=== PATIENT | female | born 1940 | race Hispanic/Latino ===

== ENCOUNTER 2025-02-20 07:56 | Outpatient (CLI) | payer MEDICARE ==
[2025-02-20 09:38] LABS: Estimated GFR - POC 56.0
[2025-02-20] MEDS ORDERED: Iopamidol 370 76% 100 ML VIAL ONE (09:46)
== END 2025-02-20 07:57 | disposition home or self-care (01) ==
LOC: CSHCT 07:56
PROVIDERS: ATTEND Family Medicine
DX: H53.9 Unspecified visual disturbance (principal); G44.209 Tension-type headache, unspecified, not intractable; M25.512 Pain in left shoulder; I71.019 Dissection of thoracic aorta, unspecified; I67.1 Cerebral aneurysm, nonruptured
CPT/HCPCS: 70496; 71275; 82565